=== PATIENT | female | born 1990 | race American Indian/Alaskan Native ===

== ENCOUNTER 2018-07-11 12:56 | Emergency (ER) | payer MEDICAID ==
[2018-07-11] MEDS ORDERED: LACTATED RINGERS 500 ML IV ONE (13:45)
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
[2018-07-11 16:19] LABS: Amphetamine Screen,Urine PRESUMPTIVE NEGATIVE; Benzodiazepines Screen,Urine PRESUMPTIVE NEGATIVE; Cocaine Screen,Urine PRESUMPTIVE NEGATIVE; Methadone Screen,Urine PRESUMPTIVE NEGATIVE; Opiate Screen,Urine PRESUMPTIVE NEGATIVE
[2018-07-11 16:32] LABS: Cannabinoid Screen,Urine PRESUMPTIVE POSITIVE
--- NOTE | 2018-07-11 17:25 | Ultrasound Report ---
FINAL REPORT PROCEDURE: US OB BPP WO NON-STRESS TECHNIQUE: Sonographic evaluation for breathing, movement, tone, and amniotic fluid volume was performed. CPT 71926 HISTORY: BPP, Placenta COMPARISON: No prior studies are available for comparison. FINDINGS: Amniotic fluid volume: Normal-score 2. At least one vertical pocket > 2 cm or more in vertical axis. breathin movement: Normal-score 2. tone: Normal. Score: 8 of 8. Single living intrauterine gestation currently visualized vertex presentation with a heart rate of 123 beats per minute. IMPRESSION: Single living intrauterine gestation visualized currently vertex presentation. Biophysical profile score 6/8. 0 score for breathing.
--- NOTE | 2018-07-11 17:29 | Ultrasound Report ---
FINAL REPORT PROCEDURE: US OB LIMITED TECHNIQUE: Real-time limited sonographic examination was performed for evaluation of well-being, amniotic fluid index for each fetus with image documentation (1 or more fetuses). CPT 58873 HISTORY: BPP, Placenta COMPARISON: No prior studies are available for comparison. FINDINGS: There is a single living intrauterine gestation currently visualize vertex presentation with a heart rate of 120 beats per minute. Subjectively the amount of amniotic fluid appears normal. The amniotic fluid index is 10.5 centimeters. Grade 2 placenta is visualized located anteriorly and left lateral. No evidence of placenta abruption or placenta previa. Detailed exam of the anatomy was not performed as this was not requested. No gross abnormality is visualized. IMPRESSION: Single living intrauterine gestation visualized currently vertex presentation. Grade 2 placenta visualized as described without evidence of abruption or placenta previa. Subjectively and by amniotic fluid index the amount of amniotic fluid appears normal. heart rate 120 beats per minute. Further evaluation was neither requested nor performed.
[2018-07-11 17:38] VITALS: BP 100/65
== END 2018-07-11 17:40 | disposition left against medical advice (07) ==
LOC: TRG 12:56 → ED 12:56 → TRG 12:57 → EDSTATUS 17:01 → ED 17:40
DX: M79.651 Pain in right thigh (principal); Z53.21 Procedure and treatment not carried out due to patient leaving prior to being seen by health care provider
CPT/HCPCS: 76815; 76819; 80307; J7120